=== PATIENT | male | born 1970 | race Two or more races ===

== ENCOUNTER 2023-01-30 17:24 | Emergency (ER) | payer BC, OTHER ==
[~2023-01-30] VITALS: Ht 190.5 cm; Wt 115.7 kg
[2023-01-30 18:19] LABS: Hemoglobin 15.1 g/dL (13.5-17.5); Mean Corpuscular Hgb Conc. 35.3 g/dL (32.0-36.0)
[2023-01-30 18:24] LABS: Basophils # (auto) 0 10 ^3/uL (0-0.2); Basophils % (auto) 0.5 % (0.0-2.0); Eosinophils # (auto) 0.1 10 ^3/uL (0-0.8); Eosinophils % (auto) 2.1 % (0.0-7.0); Hematocrit 42.7 % (41.0-53.0); Lymphocytes % (auto) 17.5 % (10.0-50.0); Mean Corpuscular Hemoglobin 31.5 pg (28.0-32.0); Mean Corpuscular Volume 89.3 fL (80.0-100.0); Monocytes # (auto) 0.4 10 ^3/uL (0-1.3); Monocytes % (auto) 7.2 % (0.0-12.0); Neutrophils # (auto) 4.2 10 ^3/uL (1.6-8.6); Neutrophils % (auto) 72.7 % (37.0-80.0); Nucleated Red Blood Cells % 0.7 %; Red Blood Cells 4.78 10^6/uL (4.5-5.90); Red Cell Distribution Width 12.8 % (11.8-14.3); White Blood Cell 5.7 10^3/uL (4.4-10.8)
[2023-01-30 18:37] LABS: Albumin 4.2 g/dL (3.4-5.0); Calcium 8.4 mg/dL (8.5-10.1); Potassium 3.9 mmol/L (3.5-5.1)
[2023-01-30 18:40] LABS: Bilirubin, Total 0.7 mg/dL (0.2-1.0); Total Protein 7.4 g/dL (6.4-8.2)
[2023-01-30 20:24] LABS: Urine Bacteria NONE SEEN /hpf (None Seen); Urine Blood Negative /uL (Negative); Urine Specific Gravity 1.006 (1.001-1.035); Urine WBC <1 /hpf (0 - 3)
[2023-01-30] MEDS ORDERED: ONDANSETRON ODT 4 MG TAB PO ONE (21:00)
[2023-01-30] MEDS ORDERED: IBUPROFEN 800 MG TAB PO ONE (21:00)
[2023-01-30] MEDS ORDERED: LORA-622 PO (21:02)
[2023-01-30] MEDS ORDERED: ZOFR4T PO (21:02)
[2023-01-30] MEDS ORDERED: AUG875T PO (21:02)
[2023-01-30] MEDS ORDERED: IBU600T PO (21:02)
[2023-01-30] MEDS ORDERED: FLUT1SPR5 (21:02)
[2023-01-30 21:42] VITALS: BP 155/97
== END 2023-01-30 21:44 | disposition home or self-care (01) ==
LOC: ER 17:24
DX: I10 Essential (primary) hypertension (principal); J01.90 Acute sinusitis, unspecified
CPT/HCPCS: 36415; 70450; 71045; 80053; 81001; 84484; 85025; 93005